=== PATIENT | male | born 1975 | race African-American/Black ===

== ENCOUNTER 2019-11-10 14:11 | Emergency (ER) | payer MEDICAID ==
[~2019-11-10] VITALS: Ht 175.3 cm; Wt 80.0 kg
[~2019-11-10 14:11] MED LIST: FURO20TA4 PO; LEVEMIR; METF-414 PO; SULF-165 PO
[2019-11-10] MEDS ORDERED: KETOROLAC 30MG/ML VIAL IV STA (14:32)
[2019-11-10] MEDS ORDERED: ONDANSETRON HCL 4MG/2ML INJ IV STA (14:32)
[2019-11-10] MEDS ORDERED: SODIUM CHLORIDE 0.9% 1,000 ML IV ONE (14:32)
[2019-11-10] MEDS ORDERED: MORPHINE SULFATE 4 MG/ML CPJ (NOT FOR IM USE) IV STA (14:32)
[2019-11-10] MEDS ORDERED: HYDRALAZINE 20MG/ML VIAL IV ONE (14:45)
[2019-11-10 16:43] VITALS: BP 147/95
== END 2019-11-10 16:47 | disposition home or self-care (01) ==
LOC: ER 14:11
DX: M54.5 Low back pain (principal); R07.2 Precordial pain; M54.2 Cervicalgia; V49.40XA Driver injured in collision with unspecified motor vehicles in traffic accident, initial encounter; Y93.89 Activity, other specified; Y92.488 Other paved roadways as the place of occurrence of the external cause
CPT/HCPCS: 71045; 72070; 72100; 72125; 96374; 96375; 99284; J0360; J1885; J2270; J2405; J7030